=== PATIENT | male | born 1960 | race Asian ===

== ENCOUNTER 2019-02-15 12:58 | Emergency (ER) | payer OTHER ==
[~2019-02-15] VITALS: Ht 188 cm; Wt 104.3 kg
[2019-02-15 13:04] VITALS: TEMP 97.9
[2019-02-15] MEDS ORDERED: INSU100I2 SC (13:13)
[2019-02-15] MEDS ORDERED: AMOX875T8 PO (13:14)
[2019-02-15] MEDS ORDERED: LISI20TA11 PO (13:15)
[2019-02-15] MEDS ORDERED: FURO20TA67 PO (13:15)
[2019-02-15] MEDS ORDERED: GABA300C2 PO (13:16)
[2019-02-15] MEDS ORDERED: PANTOPRAZOLE 40MG TA PO (13:16)
[2019-02-15] MEDS ORDERED: TRULICITY0.75 MG/0. SC (13:17)
[2019-02-15 13:54] LABS: PLATELET COUNT 279 K/uL (142-355)
[2019-02-15 14:00] LABS: POTASSIUM 3.8 mmol/L (3.6-5.2)
[2019-02-15 15:17] VITALS: BP 129/84
== END 2019-02-15 15:17 | disposition home or self-care (01) ==
LOC: ED 12:58
PROVIDERS: Hospitalist
DX: L03.032 Cellulitis of left toe (principal)
CPT/HCPCS: 36415; 80048; 85027; 87040; 96365; 99284; J3370